=== PATIENT | female | born 1985 | race Caucasian/White ===

== ENCOUNTER 2018-12-07 20:44 | Emergency (ER) | payer OTHER ==
[~2018-12-07] VITALS: Ht 157.5 cm; Wt 64.4 kg
== END 2018-12-07 22:14 | disposition home or self-care (01) ==
LOC: ER 20:44
DX: S80.811A Abrasion, right lower leg, initial encounter (principal); W55.03XA Scratched by cat, initial encounter; Y93.89 Activity, other specified; Y92.89 Other specified places as the place of occurrence of the external cause; Y99.8 Other external cause status